=== PATIENT | female | born 1960 | race Caucasian/White ===

== ENCOUNTER → 2016-09-15 | Outpatient (CLI) | payer OTHER ==
[~2016-09-15] MED LIST: LEVO75TA5 PO; SIMV20TA3 PO
[2016-09-15 08:57] LABS: BLOOD UREA NITROGEN 17 mg/dL (7-18)
[2016-09-15 09:01] LABS: ASPARTATE AMINO TRANSFERASE 29 U/L (15-37)
== END | disposition home or self-care (01) ==
LOC: STAR 07:40
PROVIDERS: ATTEND Specialist
DX: D06.9 Carcinoma in situ of cervix, unspecified (principal)
CPT/HCPCS: 36415; 80053; 85025; 85610; 85730

== ENCOUNTER 2016-09-29 05:26 | Day surgery (SDC) | payer OTHER ==
[~2016-09-29] VITALS: Ht 162.6 cm; Wt 54.0 kg
[2016-09-29] MEDS ORDERED: LACTATED RINGERS 1,000 ML IV SCH (06:05)
[2016-09-29 06:09] VITALS: BP 138/81
[2016-09-29] MEDS ORDERED: HEPARIN 1,000 UNITS/ML, 10ML ONE (06:46)
[2016-09-29] MEDS ORDERED: BUPIVACAINE/PF-EPI 0.25% 1:200K ONE (06:47)
[2016-09-29] MEDS ORDERED: INDOCYANINE GREEN 25 MG VIAL ONE (06:48)
[2016-09-29] MEDS ORDERED: FENTANYL PF 250 MCG/5ML ONE (07:00)
[2016-09-29] MEDS ORDERED: MIDAZOLAM 1 MG/ML, 2ML ONE (07:00)
[2016-09-29] MEDS ORDERED: PROPOFOL 10 MG/ML, 20ML ONE (07:43)
[2016-09-29] MEDS ORDERED: CEFAZOLIN 1,000 MG ONE (07:43)
[2016-09-29] MEDS ORDERED: DEXAMETHASONE 4 MG/ML, 1ML ONE (07:43)
[2016-09-29] MEDS ORDERED: KETOROLAC 30 MG/1 ML ONE ×2 (07:43→09:38)
[2016-09-29] MEDS ORDERED: ONDANSETRON 2MG/ML, 2ML ONE (07:43)
[2016-09-29] MEDS ORDERED: OXYcodone 5 MG/5 ML ORAL.SOL UDC PO PRN (09:00)
[2016-09-29] MEDS ORDERED: ACETAMINOPHEN 325 MG TABLET PO PRN (09:00)
[2016-09-29] MEDS ORDERED: ONDANSETRON 2MG/ML, 2ML IVPush PRN (09:00)
[2016-09-29] MEDS ORDERED: MEPERIDINE/PF 25MG/0.5ML IVPush PRN (09:00)
[2016-09-29] MEDS ORDERED: LABETALOL 5MG/ML, 20ML IV PRN (09:00)
[2016-09-29] MEDS ORDERED: ACETAMINOPHEN 325 MG TABLET ONE (09:21)
[2016-09-29] MEDS ORDERED: ACETAMINOPHEN 650 MG/20.3 ML UDC ONE (09:21)
[2016-09-29] MEDS ORDERED: HYDROmorphone 2 MG/ML, 1ML ONE (09:21)
[2016-09-29] MEDS ORDERED: OXYcodone 5 MG/5 ML ORAL.SOL UDC ONE (09:22)
[2016-09-29] MEDS: HYDROmorphone 1 MG/ML, 1ML IV PRN ×2 (09:27→09:43)
[2016-09-29] MEDS ORDERED: KETOROLAC 30 MG/1 ML IVPush SCH (10:00)
[2016-09-29] MEDS ORDERED: OXYcodone/APAP 7.5/325MG TABLET ONE (14:49)
[2016-09-29] MEDS ORDERED: OXYcodone/APAP 7.5/325MG TABLET PO PRN (15:00)
== END 2016-09-29 16:05 | disposition home or self-care (01) ==
LOC: OUT 05:26
PROVIDERS: ATTEND Specialist
DX: D25.0 Submucous leiomyoma of uterus (principal); N87.0 Mild cervical dysplasia; F17.210 Nicotine dependence, cigarettes, uncomplicated; F41.9 Anxiety disorder, unspecified; F32.9 Major depressive disorder, single episode, unspecified; Z72.89 Other problems related to lifestyle; E78.00 Pure hypercholesterolemia, unspecified; Z80.3 Family history of malignant neoplasm of breast; Z83.3 Family history of diabetes mellitus; Z82.61 Family history of arthritis
CPT/HCPCS: 36415; 58571; 86850; 86900; 86923; 88307; J0690; J1100; J1170; J1644; J1885; J2250; J2405; J2704; J3010; J7120; S2900